=== PATIENT | female | born 1960 | race Caucasian/White ===

== ENCOUNTER 2022-02-04 08:31 | Outpatient (CLI) | payer OTHER, SELFPAY ==
--- NOTE | 2022-02-04 08:45 | CRLHL7_ITS ---
For Patients: As a result of the Cures Act, medical imaging exams and procedure reports are released immediately into your electronic medical record. You may view this report before your referring provider. If you have questions, please contact your health care provider. BILATERAL SCREENING MAMMOGRAM WITH COMPUTER-AIDED DETECTION AND TOMOSYNTHESIS TECHNIQUE: CC and MLO views were obtained. These mammographic images have been obtained using full-field digital technique. These mammographic images were interpreted with the benefit of computer-aided detection. Breast Tomosynthesis was used in this interpretation. COMPARISON FILM: 10/31/19, 01/27/16, 01/23/15. FINDINGS: There are scattered areas of fibroglandular density IMPRESSION: There is no radiographic evidence for malignancy. ASSESSMENT: BI-RADS Category 2: Benign RECOMMENDATION: Routine screening mammogram in 1 year. A lay language report of this examination will be provided to the patient. Kaushik Moss M.D. Diagnostic Radiologist [email or web address] Transcribed: 7:48 p.m. REMIGIO/Dictated by: Kaushik Moss MD @ 02/04/2022 11:16:00 AM (Electronically Signed)
== END 2022-02-04 08:32 | disposition home or self-care (01) ==
LOC: MAMMO 08:33
PROVIDERS: PCP Family Medicine; Visit Provider Family Medicine
DX: Z12.31 Encounter for screening mammogram for malignant neoplasm of breast (principal)
CPT/HCPCS: 77063; 77067

== ENCOUNTER 2022-02-22 08:32 | Outpatient (CLI) | payer OTHER, SELFPAY ==
[2022-02-22 10:06] LABS: Chloride* 105 mmol/L (96-114); Sodium* 141 mmol/L (135-149)
[2022-02-22 10:07] LABS: Potassium* 4.3 mmol/L (3.6-5.1)
[2022-02-22 10:09] LABS: Blood Urea Nitrogen* 18 mg/dL (7-30); Carbon Dioxide* 29 mmol/L (20-32); Cholesterol* 145 mg/dL (90-199); Creatinine* 0.6 mg/dL (0.5-1.5); Estimated Glomerular Filt Rate 102 ml/min
[2022-02-22 10:10] LABS: Calcium* 8.9 mg/dL (8.4-10.6); Glucose* 95 mg/dL (60-115); HDL Cholesterol* 58 mg/dL (>=50); LDL Cholesterol Calculated 77 mg/dL (<100); Triglycerides* 52 mg/dL (40-149)
== END 2022-02-22 08:33 | disposition home or self-care (01) ==
PROVIDERS: PCP Family Medicine; Visit Provider Obstetrics & Gynecology
DX: Z01.419 Encounter for gynecological examination (general) (routine) without abnormal findings (principal); E66.9 Obesity, unspecified; Z13.6 Encounter for screening for cardiovascular disorders
CPT/HCPCS: 80048; 80061

== ENCOUNTER 2022-10-11 07:11 | Outpatient (CLI) | payer OTHER, SELFPAY ==
--- NOTE | 2022-10-11 06:31 | W.ANESCHARGE ---
Anesthesia Charges Start Date/Time Anesthesia Start Date: 10/11/22 Anesthesia Start Time: 08:08 Stop Date/Time Anesthesia Stop Date: 10/11/22 Anesthesia Stop Time: 08:47
--- NOTE | 2022-10-11 06:32 | P.ANHP_ITS ---
HPI - Pre-Anesthesia History of Present Illness Time Seen by Provider: 07:43 Date Seen: 10/11/22 Date of service: 10/11/22 Source: patient and old records reviewed Review of Systems Status of ROS Reports: 10 or more systems reviewed and unremarkable except as noted in History and below [facility] Medical History (Updated 10/11/22 @ 07:44 by Daniel Giron MD) Vaginal atrophy ?N95.2 - Postmenopausal atrophic vaginitis (ICD-10) Iron deficiency anemia ?D50.9 - Iron deficiency anemia, unspecified (ICD-10) Tension-type headache ?G44.209 - Tension-type headache, unspecified, not intractable (ICD-10) Iron deficiency anemia secondary to inadequate dietary iron intake (2019) ?D50.8 - Other iron deficiency anemias (ICD-10) Acquired pes planus of both feet ?M21.41 - Flat foot [pes planus] (acquired), right foot (ICD-10) ?M21.42 - Flat foot [pes planus] (acquired), left foot (ICD-10) Surgical History History of tubal ligation ?Z98.51 - Tubal ligation status (ICD-10) History of Opal-en-Y gastric bypass (2011) ?Z98.84 - Bariatric surgery status (ICD-10) History of section ?Z98.891 - History of uterine scar from previous surgery (ICD-10) History of appendectomy ?Z90.49 - Acquired absence of other specified parts of digestive tract (ICD- 10) Social History Smoking Status: Never smoker Do you use any of these nicotine containing products: None Second hand tobacco smoke exposure: No How often do you have a drink containing alcohol: never How often do you have six or more drinks on one occasion: Less than monthly AUDIT-C Alcohol total score: 1 Non-prescribed substance use: denies use Little interest or pleasure in doing things: not at all Feeling down, depressed, or hopeless: not at all Meds Home Medications and Allergies Home Medications Medication Instructions Recorded Confirmed Type calcium carbonate 200 mg calcium 200 mg PO BID 08/23/22 10/04/22 History (500 mg) chewable tablet (Antacid (calcium carbonate)) cholecalciferol (vitamin D3) 50 2,000 unit PO .Every 48 Hours 08/23/22 10/04/22 History mcg (2,000 unit) capsule cyanocobalamin (vitamin B-12) 250 1,000 mcg PO DAILY 08/23/22 10/04/22 History mcg lozenges magnesium oxide 400 mg (241.3 mg 400 mg PO DAILY 08/23/22 10/04/22 History magnesium) tablet Allergies Allergy/AdvReac Type Severity Reaction Status Date / Time No Known Drug Allergies Allergy Verified 10/04/22 09:32 Exam Const Documenting provider has reviewed patient's vital signs: yes Common normals: no apparent distress, oriented x3, healthy appearing, alert and well nourished General appearance: cooperative and comfortable Orientation/consciousness: Yes awake HENMT Common normals: normocephalic Head and scalp: normocephalic Neck & C-Spine Common normals: full ROM Chest Chest: symmetrical chest wall rise Resp Common normals: normal respiratory effort, no retractions, no use of accessory muscles and clear to auscultation bilaterally Auscultation: clear to auscultation bilaterally Cardio Common normals: regular rate, regular rhythm, S1 normal heart sound, S2 normal heart sound and no murmurs Rate: regular rate Rhythm: regular rhythm Heart sounds: S1 normal and S2 normal Neuro Common normals: oriented x3 Sensorium/orientation: awake and alert Assessment and Plan Assessment and plan (1) Colonoscopy planned: Status: Acute Plan ok to proceed with colonoscopy and sedation
--- NOTE | 2022-10-11 08:50 | W.ANESCHARGE ---
Anesthesia Charges Start Date/Time Anesthesia Start Date: 10/11/22 Anesthesia Start Time: 08:08 Stop Date/Time Anesthesia Stop Date: 10/11/22 Anesthesia Stop Time: 08:47
--- NOTE | 2022-10-11 09:20 | W.ANESCHARGE ---
Anesthesia Charges Start Date/Time Anesthesia Start Date: 10/11/22 Anesthesia Start Time: 08:08 Stop Date/Time Anesthesia Stop Date: 10/11/22 Anesthesia Stop Time: 08:47
== END 2022-10-11 07:12 | disposition home or self-care (01) ==
LOC: OP CLINIC 07:11
PROVIDERS: PCP Family Medicine; Visit Provider Surgery
DX: Z12.11 Encounter for screening for malignant neoplasm of colon (principal); K63.5 Polyp of colon; D12.8 Benign neoplasm of rectum; D50.9 Iron deficiency anemia, unspecified
CPT/HCPCS: 00811; 45385; 88305; J2704

== ENCOUNTER 2022-10-19 15:40 | Outpatient (CLI) | payer OTHER, SELFPAY ==
--- NOTE | 2022-10-19 16:00 | CRLHL7_ITS ---
For Patients: As a result of the Cures Act, medical imaging exams and procedure reports are released immediately into your electronic medical record. You may view this report before your referring provider. If you have questions, please contact your health care provider. INDICATION: Possible hernia. TECHNIQUE: Directed soft tissue ultrasound of the left groin. FINDINGS: No hernia identified. No mass. No fluid collection. IMPRESSION: Negative directed soft tissue ultrasound of the left inguinal region. Dictated by Mansoor Jensen MD @ 10/20/2022 6:16:54 AM (Electronically Signed)
== END 2022-10-19 15:41 | disposition home or self-care (01) ==
LOC: US 15:41
PROVIDERS: PCP Family Medicine; Visit Provider Family Medicine
DX: R10.32 Left lower quadrant pain (principal)
CPT/HCPCS: 76882

== ENCOUNTER 2022-11-02 08:00 | Outpatient (RCR) | payer OTHER, SELFPAY | END 2022-12-31 11:09 | disposition home or self-care (01) | PROVIDERS: PCP Family Medicine; Visit Provider Family Medicine | DX: R10.32 Left lower quadrant pain (principal); M25.552 Pain in left hip; M25.652 Stiffness of left hip, not elsewhere classified; Z51.89 Encounter for other specified aftercare | CPT/HCPCS: 97110; 97162; 97530 ==

== ENCOUNTER 2023-09-28 12:43 | Emergency (ER) | payer MEDICAID, SELFPAY ==
[2023-09-28 12:51] VITALS: BP 152/98; PULSE 111; RESP 18; TEMP 36.6; O2SAT 98; BMI 37.1
--- NOTE | 2023-09-28 13:42 | ED.GENADULT ---
HPI - General Adult General Chief complaint: Extremity Pain/Injury, Upper Stated complaint: Upper LT arm pain, weakness, tired Time Seen by Provider: 09/28/23 12:51 History of Present Illness HPI narrative: This 63-year-old female comes in with left shoulder pain that is been worsening over the past few days and prior to this also some symptoms over the past month or 2. She does not report any particular injury event but was busy moving items as she used to work in our truck terminal manager care facility. She reports pain in her left shoulder region and has inability to raise her arm up above 90?. She has difficulty getting her arm behind her back. Related Data Home Medications ?Medication ?Instructions ?Recorded ?Confirmed calcium carbonate (Antacid 200 mg PO BID 08/23/22 10/26/22 (calcium carbonate)) cholecalciferol (vitamin D3) 50 2,000 unit PO .Every 48 Hours 08/23/22 10/26/22 mcg (2,000 unit) capsule cyanocobalamin (vitamin B-12) 250 1,000 mcg PO DAILY 08/23/22 10/26/22 mcg lozenges magnesium oxide 400 mg (241.3 mg 400 mg PO DAILY 08/23/22 10/26/22 magnesium) tablet iron,carbonyl 65 mg-vitamin C 125 1 tab PO QDAY 10/26/22 10/26/22 mg tablet,delayed release (Vitron-C) Allergies Allergy/AdvReac Type Severity Reaction Status Date / Time No Known Drug Allergies Allergy Verified 10/26/22 07:59 Review of Systems Status of ROS: Reports: 10 or more systems reviewed and unremarkable except as noted in History and below Narrative: Constitutional: No fevers, no weight gain or loss. Eyes: No discharge. No vision changes. HENT: No congestion, no sore throat, no ear pain. Cardiovascular: No chest pain, no palpitations. Respiratory: No shortness of breath, no wheezes, no cough. Gastrointestinal: No abdominal pain, no vomiting, no diarrhea. Genitourinary: No dysuria, no hematuria. Musculoskeletal: Left arm and shoulder pain and weakness as described above. Skin: No rashes, no pruritis. Neurological: No dizziness, weakness, sensory change, speech change. Endo/Heme/Allergies: No bruising or bleeding. No polydipsia. Pysch: no suicidality, no anxiety, no insomnia. All other systems reviewed and are negative. [facility] Medical History (Updated 09/28/23 @ 14:01 by Hermilo De La Cruz MD) Vaginal atrophy ?N95.2 - Postmenopausal atrophic vaginitis (ICD-10) Iron deficiency anemia ?D50.9 - Iron deficiency anemia, unspecified (ICD-10) Tension-type headache ?G44.209 - Tension-type headache, unspecified, not intractable (ICD-10) Iron deficiency anemia secondary to inadequate dietary iron intake (2019) ?D50.8 - Other iron deficiency anemias (ICD-10) Acquired pes planus of both feet ?M21.41 - Flat foot [pes planus] (acquired), right foot (ICD-10) ?M21.42 - Flat foot [pes planus] (acquired), left foot (ICD-10) Surgical History History of tubal ligation ?Z98.51 - Tubal ligation status (ICD-10) History of Opal-en-Y gastric bypass (2011) ?Z98.84 - Bariatric surgery status (ICD-10) History of section ?Z98.891 - History of uterine scar from previous surgery (ICD-10) History of appendectomy ?Z90.49 - Acquired absence of other specified parts of digestive tract (ICD-10) Social History Smoking Status: Never smoker Do you use any of these nicotine containing products: None Second hand tobacco smoke exposure: No How often do you have a drink containing alcohol: never How often do you have six or more drinks on one occasion: Less than monthly AUDIT-C Alcohol total score: 1 Non-prescribed substance use: denies use Little interest or pleasure in doing things: not at all Feeling down, depressed, or hopeless: not at all Exam Narrative: Exam Narrative: Constitutional: Well-developed, well-nourished, no acute distress. HEENT: Normocephalic, atraumatic. Neck: Normal range of motion. Nontender. Supple. Heart: Regular. No murmurs. Normal rate. Intact distal pulses. Lungs: Clear to auscultation. No chest discomfort. No wheezes, rhonchi, or rales. Abdomen: Normal bowel sounds. Nontender. No rebound tenderness. Genitalia: Deferred. Back: No midline tenderness. Normal range of motion. Extremities: Diffuse pain in left shoulder without any sign of external deformity. The patient is unable to raise her arm above 90? due to pain. She has pain with lift-off sign and empty can sign. She also has significant pain with external rotation at full adduction. Skin: Intact. No rash. Warm. No erythema or pallor. Neurologic: No altered sensation. No weakness. Alert and oriented. Psychiatric: No suicidality. No anxiety or depression. No insomnia. Nursing notes and vitals signs are reviewed. Const: Vital Signs, click to edit/add: Vital Signs - 24 hr 09/28/23 12:51 Temperature 97.8 F Pulse Rate [Left P ulse Oximeter] 111 H Respiratory Rate 18 Blood Pressure [Ri ght Upper Arm] 152/98 H Pulse Oximetry 98 Oxygen Delivery Me thod Room Air Course Vital Signs Vital signs: Initial Vital Signs Temperature 97.8 F 09/28/23 12:51 Temperature Source Temporal Artery Scan 09/28/23 12:51 Pulse Rate 111 H 09/28/23 12:51 Pulse Rhythm Regular 09/28/23 12:51 Pulse Strength 3+ Normal 09/28/23 12:51 Respiratory Rate 18 09/28/23 12:51 Blood Pressure 152/98 H 09/28/23 12:51 Blood Pressure Mean 116 H 09/28/23 12:51 Blood Pressure Position Sitting 09/28/23 12:51 Pulse Oximetry 98 09/28/23 12:51 Oxygen Delivery Method Room Air 09/28/23 12:51 Vital Signs Temperature 97.8 F 09/28/23 12:51 Pulse Rate 111 H 09/28/23 12:51 Respiratory Rate 18 09/28/23 12:51 Blood Pressure 152/98 H 09/28/23 12:51 Pulse Oximetry 98 09/28/23 12:51 Oxygen Delivery Method Room Air 09/28/23 12:51 Temperature 97.8 F 09/28/23 12:51 Pulse Rate 111 H 09/28/23 12:51 Respiratory Rate 18 09/28/23 12:51 Blood Pressure 152/98 H 09/28/23 12:51 Pulse Oximetry 98 09/28/23 12:51 Oxygen Delivery Method Room Air 09/28/23 12:51 Medical Decision Making [facility] Narrative Medical decision making narrative: This patient comes in with shoulder pain that is not related to a specific injury event but may be related to some overuse activity in the somewhat recent past. She is not reporting any chest pain, lightheadedness, shortness of breath, nausea, vomiting, or diaphoresis. An EKG was obtained and shows normal sinus rhythm with no ST or T-wave abnormalities. Her symptoms are much more likely to be musculoskeletal in nature. She has some suspicion of impingement syndrome or adhesive capsulitis. I did recommend an intra-articular injection of steroid and lidocaine which she agreed to. The patient did receive total of 10 mL injected of 2% lidocaine mixed in with 40 mg of triamcinolone acetate. This provided some relief to her symptoms rather quickly however she seems to have scarring that prevents her from raising her arm much above 90?. The patient states that this may have been present for many years because she was told in the past that she had adhesive capsulitis in her shoulder. ECG Data Attestation: I personally reviewed and interpreted this ECG as follows: Interpretation: Normal sinus rhythm. Rate is 103 beats per minute. There are no ST or T-wave abnormalities. Discharge Plan Discharge Clinical Impression: Left shoulder pain Patient Disposition: Home, Self-Care Condition: Stable Additional Instructions: Increase activity as tolerated. Use [id number] medicines as needed and directed. Follow-up with orthopedic clinic if not improving or worsening. Call [phone] for appointment. Prescriptions: No Action cyanocobalamin (vitamin B-12) 250 mcg lozenge 1,000 mcg PO DAILY cholecalciferol (vitamin D3) 50 mcg (2,000 unit) capsule 2,000 unit PO .Every 48 Hours magnesium oxide 400 mg (241.3 mg magnesium) tablet 400 mg PO DAILY calcium carbonate [Antacid (calcium carbonate)] 200 mg calcium (500 mg) tablet,chewable 200 mg PO BID Vitron-C 65 mg iron- 125 mg tablet,delayed release (DR/EC) 1 tab PO QDAY Follow Up/Referrals: Teresa Baugh MD [Primary Care Provider] - Stand Alone Forms: [facility] Info Instructions
[2023-09-28] MEDS: TRIAMCINOLONE 40 MG/ML INJ INTRA-ARTI (14:05)
[2023-09-28] MEDS: LIDOCAINE 1 % PF 30 ML INJECTION (14:05)
== END 2023-09-28 14:19 | disposition home or self-care (01) ==
PROVIDERS: Emergency Provider Emergency Medicine Emergency Medical Services; PCP Family Medicine
DX: M25.512 Pain in left shoulder (principal)
CPT/HCPCS: 20610; 99283; 99284; J2001; J3301

== ENCOUNTER 2023-10-21 14:10 | Outpatient (RCR) | payer MEDICAID, SELFPAY | END 2023-12-20 14:12 | disposition home or self-care (01) | PROVIDERS: PCP Family Medicine; Visit Provider Family Medicine | DX: M25.512 Pain in left shoulder (principal); Z51.89 Encounter for other specified aftercare | CPT/HCPCS: 97110; 97140; 97161 ==